=== PATIENT | male | born 1990 | race Caucasian/White ===

== ENCOUNTER 2019-06-17 06:13 | Emergency (ER) | payer OTHER ==
[2019-06-17 06:49] VITALS: BP 133/75; PULSE 93; TEMP 97.9; BMI 22.8
--- NOTE | 2019-06-17 07:27 | PDOC ---
History of Present Illness - General Chief Complaint: Back Pain Stated Complaint: BACK PAIN Time Seen by Provider: 06/17/19 07:27 - History of Present Illness Initial Comments: HPI: 29 yo M with no reported PMH presenting with lower back pain x 6 months. Patient denies recent trauma. The pain worsens with certain movement such that walking and getting into and out of bed is painful. The pain today was 10/10, prompting him to come to the ED. Has been evaluated by multiple providers for this same pain. A "shot" has helped him in the past. Was given a cane which he uses to help ambulate when he has significant pain. Patient has a physical therapy evaluation tomorrow. Had a CT scan several months ago which showed "pain " and what sounds like disc herniation. MRI has been ordered by his PCP and is pending prior authorization. Last took cyclobenzaprine about four or five hours ago. Had been prescribed ibuoprofen which helped with pain but he ran out one week ago. Has been taking tylenol extra-strength with some relief. Denies saddle anesthesia or urinary/fecal incontinence. No fever, chills, or night sweats. [facility]: Constitutional: no fever, no chills HEENT: no throat pain, no dysphagia Cardiovascular: no chest pain, no palpitations Respiratory: no cyanosis, no shortness of breath Gastrointestinal: no abdominal pain, no nausea Genitourinary: no dysuria, no hematuria Musculoskeletal: +back pain, no saddle anesthesia Skin: no rash, no itching Neurologic: no headache, no weakness PE: General: Awake, alert, and fully oriented, in no acute distress Head: No signs of trauma Eyes: EOMI, sclera anicteric ENT: Moist mucus membranes Neck: Normal ROM, supple Lungs: Lungs clear, Normal breath sounds Cardio: Regular rhythm, S1 and S2 present Abdomen: Soft, nontender. No guarding, no rebound, no masses Extremities: Normal range of motion SKIN: Warm, Dry, normal turgor Neurologic: Cranial nerves II through XII grossly intact. Normal speech Back: Area of pain in lumbar area, left of midline, no step-offs/deformities/ fluctuance, no midline tenderness, no pain elicited upon palpation, no overlying wound or lesion, 2+ bilateral patellar reflexes, ambulates with stable gait ED Course/MDM: DDX including but not limited to: sciatica, spinal cord or cauda equina compression, metastatic cancer, spinal epidural abscess, vertebral osteomyelitis , vertebral compression fracture, radiculopathy, spinal stenosis, osteoarthritis , nephrolithiasis, herpes zoster No red flag back pain symptoms; low suspicion for cauda equina Pain control Toradol Lidocaine patch 06/17/19 07:27 Patient able to ambulate with steady gait To follow up with primary care physician Prescriptions sent to pharmacy Orthopedics referral Return precautions Safe for discharge 06/17/19 08:37 Past History - Past Medical History Allergies/Adverse Reactions: Allergies Allergy/AdvReac Type Severity Reaction Status Date / Time No Known Allergies Allergy Verified 06/17/19 06:47 Home Medications: Ambulatory Orders Ibuprofen [Motrin -] 800 mg PO Q6H PRN #90 tablet 06/17/19 Lidocaine 5% Patch [Lidoderm -] 1 patch TP DAILY #7 patch 06/17/19 Anemia: No Asthma: No Cancer: No Cardiac Disorders: No CVA: No COPD: No CHF: No DVT: No Dementia: No Diabetes: No Dialysis: No GI Disorders: No Disorders: No HTN: No Hypercholesterolemia: No Kidney Stones: No Liver Disease: No Psychiatric Problems: No Seizures: No Thyroid Disease: No Lung CA: No - Surgical History Abdominal Surgery: No Appendectomy: No Cardiac Surgery: No Cholecystectomy: No Gastric Stapling: No GI Surgery: No Lung Surgery: No Neurologic Surgery: No - Immunization History Immunization Up to Date: Yes - Psycho Social/Smoking Cessation Hx Smoking History: Never smoked Have you smoked in the past 12 months: No Information on smoking cessation initiated: No Hx Alcohol Use: No Drug/Substance Use Hx: No *Physical Exam - Vital Signs Last Vital Signs Temp Pulse Resp BP Pulse Ox 97.9 F 93 H 16 133/75 100 06/17/19 06:15 06/17/19 06:15 06/17/19 06:15 06/17/19 06:15 06/17/19 06:15 Discharge - Discharge Information Problems reviewed: Yes Clinical Impression/Diagnosis: Lower back pain Qualifiers: Chronicity: unspecified Back pain laterality: left Sciatica presence: unspecified whether sciatica present Qualified Code(s): M54.5 - Low back pain Condition: Stable Disposition: HOME - Additional Discharge Information Prescriptions: Ibuprofen [Motrin -] 800 mg PO Q6H PRN #90 tablet PRN Reason: Back Pain Lidocaine 5% Patch [Lidoderm -] 1 patch TP DAILY #7 patch - Follow up/Referral Referrals: Jerome Mason MD [Staff Physician] - - Patient Discharge Instructions Patient Printed Discharge Instructions: DI for Low Back Pain Additional Instructions: You came to the emergency department for back pain. Your pain improved with toradol and a lidoderm patch. Prescriptions sent to your pharmacy: For pain control, you have been prescribed ibuprofen 800mg. This may be taken every 6 hours for pain. Lidoderm patch: apply to the affected area, Patch may remain in place for up to 12 hours in any 24-hour period. You may also use 650-1000mg acetaminophen (Tylenol) every 6-8 hours. If needed for continued pain, these medications may be alternated every 3-4 hours. For example, if you take ibuprofen at 9am, you may take acetaminophen at noon, ibuprofen at 3pm, etc. Follow-up with you primary care physician within 72 hours to discuss this ED visit and to further evaluate your back pain. We have referred you to an orthopedist. Call and make an appointment at the number provided. Your care is not complete until you do so. Immediate medical attention is required if you have back pain and : numbness in the genital or rectal area, loss of bowel or bladder control, difficulty with urination; fever, unexplained weight loss, or other signs of illness or infection. If you think you are having an emergency, call for emergency medical - Post Discharge Activity
[2019-06-17] MEDS ORDERED: LIDOCAINE 5% TOPICAL PATCH TP ONE (07:58)
[2019-06-17] MEDS ORDERED: KETOROLAC TROMETHAMINE 30 MG/1 ML VIAL IM ONE (07:58)
[2019-06-17] MEDS ORDERED: KETOROLAC TROMETHAMINE 30 MG/1 ML VIAL ONE (08:10)
[2019-06-17] MEDS ORDERED: LIDOCAINE 5% TOPICAL PATCH ONE (08:10)
--- NOTE | 2019-06-17 08:51 | PDOC ---
Attending Attestation - Resident Resident Name: RoseliaHoracioAbril - ED Attending Attestation I have performed the following: I have examined & evaluated the patient, The case was reviewed & discussed with the resident, I agree w/resident's findings & plan - HPI HPI: 06/17/19 08:51 Healthy 29-year-old male with about 6-month history of atraumatic low back pain/ left sciatic nerve pain managed as outpatient by his PCP with NSAIDs and physical therapy presents now with exacerbation of pain of the last few days, not precipitated by any injury or movement. No other red flags on history, reports similar sharp pain beginning in the lower back and radiating posteriorly to the mid thigh, positional in nature, but not associated with any bowel or bladder issues or motor or sensory deficit or fevers or chills. Has not had imaging to date, has not seen a music therapy specialist to date. - Physicial Exam PE: 06/17/19 08:52 Vital signs normal Patient is well-appearing and comfortable following pain medication No midline spine tenderness, slight left low back discomfort to palpation without swelling or discoloration 5 out of 5 flexion/extension of bilateral hips/knees/ankle/toes. Ambulating steadily independently, arrived with a cane but no longer needing it. - Medical Decision Making 06/17/19 08:53 29-year-old male with atraumatic sciatic/low back pain for 6 months, exacerbated over the last 2 days. No red flags on history or physical exam, ambulating comfortably here. No indication for emergent imaging behavioral intervention specialist referral for MRI Lidocaine patch, continue NSAIDs as needed Understands return criteria
[2019-06-17] MEDS ORDERED: LIDOCAINE PATCH REMOVAL MC SCH (22:00)
== END 2019-06-17 08:48 | disposition home or self-care (01) ==
LOC: JER 06:13
PROC: 3E0233Z Introduction of Anti-inflammatory into Muscle, Percutaneous Approach (ICD-10-PCS; principal; 2019-06-17)
DX: M54.5 Low back pain (principal)
CPT/HCPCS: 99281-25